=== PATIENT | female | born 1985 | race Caucasian/White ===

== ENCOUNTER 2020-06-03 05:10 | Emergency (ER) | payer OTHER ==
[~2020-06-03] VITALS: Ht 170.2 cm; Wt 72.6 kg
--- NOTE | 2020-06-03 05:28 | NUR ---
BIBRA 62 FOR C/O ANXIETY S/P INJECTING METH. PT ADMITTED ON SMOKING METH IN THE PAST. PT DENIED ANY PAIN OR DISCOMFORT AT THIS TIME. -SI/HI. PT WAS PLACED IN BED 14 UNDER CLOSE SUPERVISION OF A SITTER. VSS. WILL CONT TO MONITOR,
--- NOTE | 2020-06-03 06:25 | NUR ---
EMT AT BEDSIDE FOR EKG
[2020-06-03] MEDS ORDERED: LORAZEPAM INJ 2 MG/ML VIAL IVP ONE (06:30)
[2020-06-03] MEDS ORDERED: IV NS 0.9% 1,000 ML BAG IV ONE (06:30)
--- NOTE | 2020-06-03 06:30 | NUR ---
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
[2020-06-03] MEDS ORDERED: LORAZEPAM INJ 2 MG/ML VIAL ONE (06:34)
[2020-06-03 06:43] LABS: BASOPHILS # (AUTO) 0.1 /CMM (0.0-0.2); BASOPHILS % (AUTO) 1.1 % (0.0-2.0); EOSINOPHILS % (AUTO) 0.1 % (0.0-6.0); HEMATOCRIT 40 % (33-45); HEMOGLOBIN 12.9 g/dL (11.5-14.8); LYMPHOCYTES # (AUTO) 2.1 /CMM (0.8-4.8); LYMPHOCYTES % (AUTO) 19.4 % (20.0-44.0); MEAN CORPUSCULAR HGB CONC 33 g/dl (31.0-36.0); MEAN CORPUSCULAR VOLUME 83 fL (82-100); MONOCYTES # (AUTO) 0.6 /CMM (0.1-1.30); MONOCYTES % (AUTO) 5.3 % (2.0-12.0); NEUTROPHILS # (AUTO) 8.1 /CMM (1.8-8.9); NEUTROPHILS % (AUTO) 74.1 % (43.0-81.0); PLATELET COUNT (AUTO) 259 /CMM (150-450); RED BLOOD CELL COUNT(AUTO) 4.74 MIL/uL (4.0-5.2)
[2020-06-03 06:57] LABS: ALANINE AMINOTRANSFERASE 23 U/L (12-78); ALBUMIN 4.2 g/dL (3.4-5.0); ALCOHOL, BLOOD < 3 mg/dL (0-0); ALKALINE PHOSPHATASE 84 U/L (46-116); ASPARTATE AMINOTRANSFERASE 23 U/L (15-37); BILIRUBIN,DIRECT 0.2 mg/dL (0.0-0.2); BILIRUBIN,TOTAL 0.8 mg/dL (0.2-1.0); CALCIUM, SERUM 9.5 mg/dL (8.5-10.1); CARBON DIOXIDE 24 mmol/L (21-32); CHLORIDE 102 mmol/L (98-107); CREATININE 0.8 mg/dL (0.6-1.3); GLUCOSE 100 mg/dL (74-106); POTASSIUM 3.5 mmol/L (3.5-5.1); SODIUM SERUM 138 mmol/L (136-145); TOTAL PROTEIN, SERUM 7.8 g/dL (6.4-8.2); UREA NITROGEN, BLOOD 14 mg/dL (7-18)
[2020-06-03 07:00] LABS: ACETAMINOPHEN < 10 ug/ml (10-30)
--- NOTE | 2020-06-03 07:00 | NUR ---
urine collected and sent to lab
[2020-06-03 08:15] LABS: APPEARANCE,URINE CLEAR (CLEAR); BILIRUBIN,URINE NEGATIVE (NEGATIVE); BLOOD, URINE LARGE Ery/uL (NEGATIVE); COLOR,URINE YELLOW (YELLOW); KETONES,URINE 40 (NEGATIVE); LEUKOCYTE ESTERASE ,URINE NEGATIVE (NEGATIVE); NITRITE, URINE NEGATIVE (NEGATIVE); PROTEIN,URINE TRACE mg/dl (NEGATIVE); UGLUCOSE NEGATIVE (NEGATIVE); UROBILINOGEN,URINE 0.2 EU/dL (0.2)
[2020-06-03 08:39] LABS: BACTERIA,URINE Rare /HPF (None Seen); RBC,URINE 81-100 /HPF (0-2); SQUAMOUS EPITHELIAL CELL,UR Few /HPF (None Seen); WBC,URINE 0-2 /HPF (0-3)
--- NOTE | 2020-06-03 09:42 | NUR ---
PATIENT A/OX4, BREATHING EVEN AND UNLABORED, NO SOB NOTED, GIVEN BREAKFAST. PATIENT STATES SHE'S NOT HOMELESS AND GAVE AN ADDRESS. AMBULATORY WITH STEADY GAIT. IV removed. Catheter intact and site benign. Pressure and 4x4 applied to site. No bleeding noted.Patient discharged to home in stable condition. Written and verbal after care instructions given. Patient verbalizes understanding of instruction.
[2020-06-03 09:43] VITALS: BP 137/90
--- NOTE | 2020-06-03 10:17 | NUR ---
Patient discharged to home in stable condition. Written and verbal after care instructions given. Patient verbalizes understanding of instruction.
== END 2020-06-03 10:17 | disposition home or self-care (01) ==
LOC: ER 05:10
DX: F15.10 Other stimulant abuse, uncomplicated (principal); F41.9 Anxiety disorder, unspecified; F17.200 Nicotine dependence, unspecified, uncomplicated
CPT/HCPCS: 36415; 80048; 80076; 80299; 80307; 80320; 81001; 84703; 85025; 93005; 96361; 96374; 99284; 99406; J2060; J7030; 81000-TC; G0480

== ENCOUNTER 2020-09-07 09:48 | Emergency (ER) | payer OTHER ==
[~2020-09-07] VITALS: Ht 165.1 cm; Wt 54.4 kg
[2020-09-07 09:50] VITALS: BP 129/86
== END 2020-09-07 10:04 ==
LOC: ER 09:59
DX: S00.83XA Contusion of other part of head, initial encounter (principal); Z02.89 Encounter for other administrative examinations; Y08.89XA Assault by other specified means, initial encounter; Y93.89 Activity, other specified; Y92.89 Other specified places as the place of occurrence of the external cause; Y99.8 Other external cause status